=== PATIENT | female | born 1995 ===

== ENCOUNTER 2018-10-28 13:58 | Emergency (ER) | payer BC, OTHER ==
[2018-10-28 21:41] VITALS: BP 134/70; PULSE 78; TEMP 98.2; O2SAT 100
== END 2018-10-28 16:00 | disposition home or self-care (01) ==
LOC: H.EROB2 13:58
DX: O47.1 False labor at or after 37 completed weeks of gestation (principal); O26.93 Pregnancy related conditions, unspecified, third trimester; R10.2 Pelvic and perineal pain; Z3A.40 40 weeks gestation of pregnancy; O48.0 Post-term pregnancy

== ENCOUNTER 2018-10-30 01:29 | Inpatient (IN) | payer BC, OTHER ==
[2018-10-30] MEDS ORDERED: Lactated Ringer's 1,000 ML IV ONE (04:43)
[2018-10-30] MEDS ORDERED: Lactated Ringer's 1,000 ML IV SCH ×4 (04:45→12:10)
[2018-10-30] MEDS ORDERED: OXYTOCIN/0.9 % NS 20 UNIT/1,000 ML BAG IV SCH (04:45)
[2018-10-30] MEDS ORDERED: Oxytocin 30 UNIT 30 UNITS/500 ML BAG IV ONE (04:45)
[2018-10-30] MEDS ORDERED: Fentanyl/Bupivacaine HCl 250 ML EPI ONE (05:01)
[2018-10-30 05:08] LABS: BASO # 0.2 K/uL (0.0-0.2); BASO % 1.2 % (0.0-2.0); EOS # 0.4 K/uL (0.0-0.7); HEMOGLOBIN 11.9 g/dL (12.0-16.0); LYMPH # 3.3 K/uL (1.0-4.3); LYMPH % 23.2 % (20.0-40.0); MEAN CORPUSCULAR HEMOGLOBIN 26.9 pg (27.0-31.0); MEAN CORPUSCULAR HGB CONC 32.5 g/dL (33.0-37.0); MEAN PLATELET VOLUME 8.7 fl (7.2-11.7); MONO # 0.7 K/uL (0.0-0.8); MONO % 5.2 % (0.0-10.0); NEUT # 9.6 K/uL (1.8-7.0); NEUT % 67.4 % (50.0-75.0); RBC 4.41 Mil/uL (3.80-5.20); WHITE BLOOD COUNT 14.2 K/uL (4.8-10.8)
[2018-10-30] MEDS ORDERED: Lidocaine 1% Inj (20ml) ONE (05:20)
[2018-10-30] MEDS ORDERED: Benzocaine/Menthol SPRAY TOP PRN ×2 (05:33→12:10)
[2018-10-30] MEDS ORDERED: Oxycodone/Acetaminophen 5/325 mg Tab PO PRN ×2 (05:33→12:10)
[2018-10-30 07:46] VITALS: RESP 18
--- NOTE | 2018-10-30 08:28 | OBADHP ---
Datetime: 10/30/2018 04:30 Admit Comment, IP Provider: 23 y/o female 40.4 wk GA presents to [facility] w/ c/o CTx. CTx that s tarted 2 weeks ago and became more intense and regular every 3-4 mins for past 12 hours. Denies LOF o r VB. Reports good movemnts. Patient was seen at Dr. Arroyo's office at 1 PM and she was 4 c m dilated. OB: Dr. Arroyo, Late care, Last US 09/24/18: Cephalic, No previa Pmhx: VSD PSHx: VSD repair at age 10, Cyst removal 2015 OBhx: 1 in 2017 Meds: PNVs FHx: non-contributory SocialHx: denies ETOH/smoking/drug use in pergnancy Allergies: NKDA ROS: negative except per HPI Physical Exam: Gen: in distress during CTx Heart: S1/S2 present, RRR Lungs: normal resp effort, clear to auscultation bilaterally Abd: Gravid, normal BS, soft, non-tender SVE: (chaperoned by Nurse Kody) 5-6cm/100%/-3 Extremities: no swelling/tenderness/erythema Assessment and Plan: 23 y/o female 40.4 wk GA IUP EFM and toco monitoring SVE: 5-6cm/100%/-3 FHR NST reactive w/ moderate variability, + accels, No decels LR 1L CBC, Type and screen Anesthesia consult for epidural Monitor for cervical changes Omi Barroso, PGY1 (Annotations: Data stored by CPN on behalf of user) Pelvic Type - PN: Not Done Extremities - PN: Normal Abdomen - PN: Normal Back - PN: Normal Breast - PN: Not Done Lungs - PN: Normal Heart - PN: Normal Thyroid - PN: Not Done Neurologic - PN: Normal HEENT - PN: Normal General - PN: Normal Presentation-Admit: Vertex FHR - Baseline A Provider: 140 Contraction Comments Provider: Regular Q2 IP Hx Assessment: The History has been Reviewed and is Current Vital Signs Provider: Reviewed; Within Normal Limits IP Chief Complaint: Uterine contractions NICHD Variability Prov Fetus A: Moderate 6-25bpm NICHD Accel Fetus A IP Provider: [id number] FHR Category Provider Fetus A: Category I Dilatation, Provider: 6 Effacement, Provider: 100 Station, Provider: -3 Genitourinary Exam: Normal DTRs - PN: Not Done EGA AdmitDate IP: 40.4 IP Adm Impression: Term, intrauterine IP Admit Plan: Admit to unit; Initiate labor protocol Datetime: 10/30/2018 02:27 NICHD Decel Fetus A IP Provider: None Datetime: 10/28/2018 15:36 Gestation - Est Wks by US: 40.2
--- NOTE | 2018-10-30 08:32 | OBDS ---
DELIVERY PERSONNEL Delivery Doctor: Luz Clayton MD Urinalysis Technician: Catherine Pattie RN MATERNAL INFORMATION Delivery Anesthesia: None Medications in Delivery: PITOCIN 30 UNITS IN 500 ML NS Estimated Blood Loss (ml): 200 Placenta Cultured: No Maternal Complications: Precipitous Labor (<3hrs) Provider Comments: . Pt delivered viable male with apgars 9/9. JAKOB position. Placenta delivered spontaneously. No lacerations, perineum intact. Uterus firm and approp hemostatic following delivery. Pt tolerat ed well. No complications. EBL 200cc. LABOR SUMMARY EDC: 10/26/2018 00:00 No. Babies in Womb: 1 Attempted: No Labor Anesthesia: None LABOR INFORMATION Reason for Induction: Not Applicable Onset of Labor: 10/30/2018 03:00 Complete Dilatation: 10/30/2018 05:00 Oxytocin: N/A Group B Beta Strep: Negative Antibiotics # of Doses: 0 Steroids Given: None Reason Steroids Not Administered: Not Applicable MEMBRANES Membranes Rupture Method: Spontaneous Rupture of Membranes: 10/30/2018 05:20 Length of Rupture (hrs): 0.08 Amniotic Fluid Color: Clear Amniotic Fluid Amount: Moderate STAGES OF LABOR Stage 1 hrs: 2 Stage 1 min: 0 Stage 2 hrs: 0 Stage 2 min: 25 Stage 3 hrs: 0 Stage 3 min: 3 Total Time in Labor hrs: 2 Total Time in Labor min: 28 VAGINAL DELIVERY Episiotomy: None Laceration Extension: N/A Laceration Type: None Initial Vag Sponge Count: 5 Final Vag Sponge Count: 5 Initial Vag Sharps Count: 0 Final Vag Sharps Count: 0 Sponge Count Correct: Yes Sharps Count Correct: No BABY A INFORMATION Infant Delivery Date/Time: 10/30/2018 05:25 Method of Delivery: Vaginal Born in Route : No : N/A Forceps: N/A Vacuum Extraction: N/A Shoulder Dystocia : No SHOULDER DYSTOCIA BABY A Infant Delivery Date/Time: 10/30/2018 05:25 PRESENTATION/POSITION BABY A Presentation: Cephalic Cephalic Presentation: Vertex Breech Presentation: N/A PLACENTA INFORMATION BABY A Placenta Delivery Time : 10/30/2018 05:28 Placenta Method of Delivery: Spontaneous Placenta Status: Delivered SCORES BABY A Heart Rate 1 min: >100 bpm Resp Effort 1 min: Good Cry Reflex Irritability 1 min: Cough or Sneeze or Pulls Away Muscle Tone 1 min: Active Motion Color 1 min: Body [place], Extremities Blue Resuscitation Effort 1 min: Tactile Stimulation SCORE 1 MIN: 9 Heart Rate 5 min: >100 bpm Resp Effort 5 min: Good Cry Reflex Irritability 5 min: Cough or Sneeze or Pulls Away Muscle Tone 5 min: Active Motion Color 5 min: Body [place], Extremities Blue Resuscitation Effort 5 min: N/A SCORE 5 MIN: 9 INFANT INFORMATION BABY A Gestational Age at Delivery: 40.0 Gestational Status: Term Outcome : Liveborn Infant Condition : Stable Infant Sex: Male IDENTIFICATION/MEDS BABY A ID Band Number: [id number] ID Band Location: Left Leg; Left Arm WEIGHT/LENGTH BABY A Infant Birthweight (gms): 3425 Infant Weight (lb): 7 Infant Weight (oz): 9 CORD INFORMATION BABY A No. Cord Vessels: 3 Nuchal Cord : Around Neck x1, Loose Infant Suction: None
[2018-10-30] MEDS ORDERED: Multivitamin With Minerals Tab PO SCH (09:00)
[2018-10-31] MEDS ORDERED: Multivitamin With Minerals Tab PO SCH (09:00)
[2018-10-31] MEDS ORDERED: Hydrocortisone-Pramoxine 1%-1% Foam(10 gm) TOP PRN (17:59)
--- NOTE | 2018-11-01 09:54 | OBPPN ---
Datetime: 11/01/2018 09:51 PP Progress Prov: Normal PP Comments Phys Exam Prov: Abd: Soft, NT, BS- present UT- Firm PP Impression Prov: Normal progression PP Plan Prov: Discharge PP Progress Note Prov: S/P , PPD #2 Clinically Stable. Plan: Discharge Home. IP PP Procedures: None Vital Signs Provider PP: Reviewed
--- NOTE | 2018-11-01 09:56 | OBDCSUM ---
Datetime: 10/28/2018 15:45 Follow up at, Provider: Dr. Arroyo ([facility]) Disch Instr Activity: Normal activity; May be up to bathroom; May be up for meals; May Shower Discharge Instructions, Provider: Routine instructions given Discharge Diagnosis, Provider: Term Delivered Discharge Time: 11/01/2018 11:00 Follow up in weeks, Provider: in 5 to 6 weeks Contraception discussed, Prov: Yes Disch Activity Restrictions: No lifting; No sexual activity; Nothing in vagina - [place], tampon s, douche Discharge Comment, Provider: S/P Uncomplicated , Clinically Stable. Discharge Diagnosis Prov Other: S/P Uncomplicated , Clinically Stable.
[2018-11-01 18:50] VITALS: BP 93/58; PULSE 63; TEMP 98.1; O2SAT 98
--- NOTE | 2018-11-02 13:45 | OBPPN ---
Datetime: 11/01/2018 09:51 PP Pain Prov: Within normal limits PP Nausea Prov: Denies PP Flatus Prov: Yes PP Breasts Prov: Normal PP Heart Prov: Normal PP Lungs Prov: Normal PP Abdomen/Uterus Prov: Normal PP Lochia Prov: Normal PP Vulva/Perineum Prov: Normal PP CVA Tenderness Prov: Normal PP Extremities Prov: Normal Datetime: 10/31/2018 09:48 PP Comments Phys Exam Prov: Abd: SOft, NT, BS- present UT- Firm PP Impression Prov: Normal progression PP Plan Prov: Continue present management PP Impression Other Prov: S/P PP Progress Note Prov: S/P , PPD #1 Clinically Stable. Plan: Continue care.
== END 2018-11-01 14:05 | disposition home or self-care (01) | DRG 807 ==
LOC: H.EROB2 01:29 → H.L&D 04:43 → H.OB/GYN 09:30
PROVIDERS: ADMIT Obstetrics & Gynecology; ATTEND Obstetrics & Gynecology
PROC: 10E0XZZ Delivery of Products of Conception, External Approach (ICD-10-PCS; principal; 2018-10-30)
PROC: 4A1HXCZ Monitoring of Products of Conception, Cardiac Rate, External Approach (ICD-10-PCS; 2018-10-30)
DX: O62.3 Precipitate labor (principal); Z37.0 Single live birth; O69.81X0 Labor and delivery complicated by cord around neck, without compression, not applicable or unspecified; Z3A.40 40 weeks gestation of pregnancy